=== PATIENT | female | born 1950 | race Caucasian/White ===

== ENCOUNTER 2024-04-29 21:14 | Emergency (ER) | payer MEDICARE, OTHER, SELFPAY ==
[2024-04-29 22:05] VITALS: BP 154/90; PULSE 88; RESP 16; TEMP 36.4; O2SAT 98; BMI 22.6
--- NOTE | 2024-04-29 22:50 | ED.ANIMALBIT ---
HPI - Animal Bite General Time Seen by Provider: 22:50 Date Seen: 04/29/24 Chief Complaint: Animal Bite Stated Complaint: cat bite R wrist Time Seen by Provider: 04/29/24 22:50 Source: patient, RN notes reviewed and old records reviewed Mode of arrival: ambulatory Limitations: no limitations History of Present Illness HPI narrative: Isabel is a very pleasant 73-year-old female with up-to-date tetanus in 2022 who comes to the emergency room for evaluation after a cat bite. Isabel was caring for a neighbor's cat and it bit and scratched her on the backside of her right wrist. Unfortunately this was at 1400 hours and now she has increasing redness and soreness around this area. She has not had any fever chills or vomiting. She feels that the cat is up-to-date on vaccinations but has not specifically spoken to her friend. Related Data Allergies Allergy/AdvReac Type Severity Reaction Status Date / Time nitrofurantoin (From Allergy Severe Anaphylaxis Verified 04/29/24 22:43 Macrobid) clarithromycin (From Biaxin) AdvReac Severe Anaphylaxis Verified 04/29/24 22:43 sulfamethoxazole (From AdvReac Severe Anaphylaxis Verified 04/29/24 22:43 Bactrim) trimethoprim (From Bactrim) AdvReac Severe Anaphylaxis Verified 04/29/24 22:43 venlafaxine (From Effexor) AdvReac Severe Agitated Verified 04/29/24 22:43 Review of Systems Status of ROS: Reports: 6 or more systems reviewed and unremarkable except as noted in History and below Exam Narrative: Exam Narrative: Isabel is alert and oriented. No acute distress. Heart with regular rate and rhythm and lungs are clear to auscultation. Examination of the right wrist shows. Very small superficial scabs and evidence of a bite wound on the dorsum of the right wrist. There is surrounding erythema-I do not note significant edema. Distally hand does appear to be red. Ventral surface is without erythema. No evidence of lymphadenopathy. Const: Vital Signs, click to edit/add: Vital Signs - 24 hr 04/29/24 22:05 Temperature 97.6 F Pulse Rate [Right Pulse Oximeter] 88 Respiratory Rate 16 Blood Pressure [Ri ght Upper Arm] 154/90 H Pulse Oximetry 98 Oxygen Delivery Me thod Room Air Documenting provider has reviewed patient's vital signs: yes Course Course ED Course: At this time 1 of the wounds is big enough that I would x-ray to ensure there was no remnant of retained foreign body such as a tooth. If this is negative patient will be discharged home with plan of antibiotic and pain control. Vital Signs Vital signs: Initial Vital Signs Temperature 97.6 F 04/29/24 22:05 Temperature Source Temporal Artery Scan 04/29/24 22:05 Pulse Rate 88 04/29/24 22:05 Pulse Rhythm Regular 04/29/24 22:05 Pulse Strength 3+ Normal 04/29/24 22:05 Respiratory Rate 16 04/29/24 22:05 Blood Pressure 154/90 H 04/29/24 22:05 Blood Pressure Mean 111 H 04/29/24 22:05 Blood Pressure Position Sitting 04/29/24 22:05 Pulse Oximetry 98 04/29/24 22:05 Oxygen Delivery Method Room Air 04/29/24 22:05 Vital Signs Temperature 97.6 F 04/29/24 22:05 Pulse Rate 88 04/29/24 22:05 Respiratory Rate 16 04/29/24 22:05 Blood Pressure 154/90 H 04/29/24 22:05 Pulse Oximetry 98 04/29/24 22:05 Oxygen Delivery Method Room Air 04/29/24 22:05 Temperature 97.6 F 04/29/24 22:05 Pulse Rate 88 04/29/24 22:05 Respiratory Rate 16 04/29/24 22:05 Blood Pressure 154/90 H 04/29/24 22:05 Pulse Oximetry 98 04/29/24 22:05 Oxygen Delivery Method Room Air 04/29/24 22:05 MDM - Animal Bite MDM Narrative Medical decision making narrative: 1. Cat bite-suspect cellulitis. No evidence of abscess at this early stage. No evidence of sepsis with reassuring vital signs and no fever. Will place patient on Augmentin 875 p.o. b.i.d. for 7 days. Recommend monitoring and seeking medical attention for worsening symptoms such as vomiting, fever, extending erythema onto the forearm. Patient will check with her friend tomorrow to ensure that this pet is up-to-date on vaccinations including rabies. No concerns regarding tetanus with patient having been updated in 2022. For discomfort recommend ibuprofen 400 mg every 8 hours. Will give her a small amount of Vicodin 5/325 1-2 tabs p.o. q.4-6 hours p.r.n. 8. With no refills to be used in the event that ibuprofen is not managing her discomfort. Both of these given through our MeetMe machine. 2. Disposition-home at this time. Seek medical attention for worsening symptoms. If she has worsening symptoms may need to admit for IV Unasyn. Medical Records Attestation: I reviewed the patient's medical records. Imaging Data Right wrist: Attestation: I have reviewed the pertinent imaging results. My impression: I do not note any foreign body Radiologist's impression: No acute fractures or malalignment. Mild 1st MCP joint degenerative changes. No retained radiopaque foreign body. Mild soft tissue swelling. Discharge Plan Discharge Clinical Impression: Cat bite Patient Disposition: Home, Self-Care Condition: Unchanged Instructions: Animal Bite (ED) Additional Instructions: Please check to ensure the cat is up-to-date on vaccinations. Start Augmentin tonight. Please monitor your wound. It will not look immediately better but should not be worsening. If you start to develop fever chills vomiting or the redness extends onto the forearm you will need to return for IV antibiotics. For pain, recommend ibuprofen 400 mg every 8 hours. Will also give you a few doses of Vicodin which is a combination medication of a narcotic called hydrocodone and Tylenol. Please do not take any extra Tylenol. This medication sometimes does cause nausea and almost always causes constipation so you may want to be on a stool softener. Activity Level: No Restrictions Discharge Diet: Regular Follow Up/Referrals: Carol Otero DO [Primary Care Provider] - Stand Alone Forms: Carma Info Instructions
== END 2024-04-29 23:33 | disposition home or self-care (01) ==
LOC: ED 23:04
PROVIDERS: Emergency Provider Family Medicine; PCP Family Medicine
DX: S61.531A Puncture wound without foreign body of right wrist, initial encounter (principal); W55.01XA Bitten by cat, initial encounter
CPT/HCPCS: 73100; 99283; 99284

== ENCOUNTER 2024-05-07 22:18 | Emergency (ER) | payer MEDICARE, OTHER, SELFPAY ==
--- OUTSIDE RECORDS SUMMARY | 2024-05-07 22:20 | XMS_ITS | Encounter Summary ---
Author Organization [facility] Address [address], [place] [address] Care Team Providers Care Pre Owned Sales Manager Name Role Phone Lynsey Smith MD Primary Care Provider [phone] Encounter Details Date Type Department Care Team (Late st Contact Info) Description 11/02/2016 Consent for Procedure/Treatme nt [facility] INFORMED CONSENT RECORD Social History Tobacco Use Types Packs/Day Years Used Date Smoking Tobacco: Never Assessed Sex and Gender Information Value Date Recorded Sex Assigned at Not on file Gender Identity Not on file Sexual Orientation Not on file documented as of this encounter Plan of Treatment Not on file documented as of this encounter Visit Diagnoses Not on filedocumented in this encounter Care Teams Pre Owned Sales Manager Relationship Specialty Start Date End Date Lynsey Smith MD [address] [place] [address] PCP - General Family Practice 11/02/16 documented as of this encounter
--- OUTSIDE RECORDS SUMMARY | 2024-05-07 22:21 | XMS_ITS | Clinical Summary ---
Author Organization [facility] Address [place], [place] [address] Care Team Providers Care Dock Manager Name Role Phone Carol Otero DO Primary Care Provider Allergies Active Allergy Reactions Criticality Noted Date Comments Sulfamethoxazole-Trimethoprim Rash 2006 Clarithromycin Rash 03/20/2007 Venlafaxine Analogues Rash 03/10/2017 Nitrofurantoin Medications MULTIVITAMIN TABIndications: Internal hemorrhoids without mention of complication,Sp ecial screening for malignant neoplasms, colon,Family history of colonic polyps take 1 tablet by oral route once daily with food 0 03/20/20 07 Active calcium-vits F2-A-J8-mineral s 166.75 mg- 166.75 unit cap Take by mouth. 0 05/23/19 15 Active folic acid 800 mcg tablet Take 1 tablet by mouth once daily. 0 06/08/19 18 Active ibuprofen (ADVIL; MOTRIN) 400 mg tablet Take 400 mg by mouth every 6 hours if needed. Active blood-glucose meterIndication s:Type 2 diabetes mellitus without complication, without long-term current use of insulin (HC) Dispense meter, test strips, lancets covered by pt ins. E11.9 NIDDM type II - Test 1 time/day 1 Each 05/04/19 22 Active spironolactone (ALDACTONE) 50 mg tablet Take 50 mg by mouth two times daily. 04/15/19 23 Active blood sugar diagnostic (Accu-Chek Guide test strips) stripIndication s:Type 2 diabetes mellitus without complication, without long-term current use of insulin (HC) Dispense item covered by pt ins. E11.9 NIDDM type II - Test 1 time/day 100 Each 3 04/29/19 23 Active medication order composer Viviscal PRO advanced hair health (A[place]oMar 475mg, apple extract powder 40mg, biotin 100mcg) 0 04/29/19 23 Active lancets (Accu-Chek Softclix Lancets)Indicat ions:Type 2 diabetes mellitus without complication, without long-term current use of insulin (HC) use to test blood glucose levels once daily. 100 Each 09/02/19 23 Active cholecalciferol , Vitamin D3, (Vitamin D-3) 5,000 unit tab tablet Take 1,000 units by mouth once daily. Three times daily 0 10/27/19 23 Active CPAPIndications :LAKESHA (obstructive sleep apnea) CPAP machine for home use at pressure 8.6 cmw, nasal mask x1/3month with nasal cushion x2/mo 1 Each 11 05/17/19 24 Active clobetasol 0.05% TOPICAL (TEMOVATE) 0.05 % external solution Apply to affected areas on scalp 1-2x daily for up to two weeks at a time.* 04/27/19 24 Active sulfacetamide sodium-sulfur (SUMAXIN) 8-4 % suspension WASH AFFECTED AREAS ON CHEST ONCE DAILY. LATHER AND LET SIT A FEW MINUTES PRIOR TO RINSING. 05/18/19 24 Active triamcinolone 0.1 % ointment APPLY TO AFFECTED AREAS ON CHEST 1-2X DAILY FOR UP TO TWO WEEKS. TAKE A BREAK AND REPEAT NEEDED FOR FLARES. 05/18/19 24 Active medication order composer monoxodil Activ e metFORMIN (GLUCOPHAGE) 500 mg tabletIndicatio ns:Type 2 diabetes mellitus without complication, without long-term current use of insulin (HC) Take 1 Tablet (500 mg) by mouth two times daily with meals. 180 Tablet 2 12/06/19 24 Active rosuvastatin (CRESTOR) 10 mg tabletIndicatio ns:Mixed hyperlipidemia, Type 2 diabetes mellitus without complication, without long-term current use of insulin (HC) TAKE ONE TABLET BY MOUTH ONE TIME DAILY AT BEDTIME 90 Tablet 1 05/01/19 25 Active amoxicillin-cla vulanate (AUGMENTIN) 875-125 mg tablet Take 1 Tablet by mouth two times daily with meals. 04/29/19 25 Active rosuvastatin (CRESTOR) 10 mg tabletIndicatio ns:Mixed hyperlipidemia, Type 2 diabetes mellitus without complication, without long-term current use of insulin (HC) Take 1 Tablet (10 mg) by mouth at bedtime. 90 Tablet 2 07/13/19 24 025 Discontinued Active Problems Problem Noted Date Diagnosed Date Sensorineural hearing loss, bilateral 07/26/2023 ACP (advance care planning) 11/16/2020 Overview (11/24/2020): Patient has registered for the ACP class on November. Anna Downing BIOFUELS ENGINEERING MANAGER Advance Care Planning Educator Greater trochanteric bursitis of both hips 07/09 Nodule of finger 02/22/2013 Adenomatous colon polyp 03/05/2012 Overview (09/01/2022): Colonoscopy 02/2012 polyp repeat in 5 years Colonoscopy 06/2017 normal repeat in 5 years Colonoscopy 08/2022 2-TA, repeat in 7 years, propofol LAKESHA 02/10/2012 AHI-20 02/17/2012 Retinal edema 03/08/2010 Symptomatic menopausal or female climacteric sta félix 02/19/2007 Other and unspecified hyperlipidemia 02/19/2007 Resolved Problems Problem Noted Date Diagnosed Date Resolved Date Routine general medical exam ination at a health care facility 02/27/2008 02/12/2016 Overview (11/07/2014): Dexa normal. 2004., minimal change in 2009, consider recheck age 69. Colonoscopy adenoma, repeat in 5 years. \Angelica Paredes M.D. 03/23/2012 1:38 PM Encounters Date Type Department Care Team Description 05/07/2024 Nurse Triage [facility] [address] [place] [address] Carol Otero, DO Diarrhea 05/01/2024 10:00 AM SUPERVISOR DRY PASTE Office Visit [facility] [address] [place] [address] Laurie Pike, DO ER Follow up (Cat bite on right wrist, getting better, on antibiotics) 05/01/2024 Nurse Triage [facility] [address] [place] [address] Carol Otero, DO Medication Problem 05/01/2024 Travel 04/30/2024 Nurse Triage [facility] [address] [place] [address] Carol Otero, Bite 04/30/2024 Refill [facility] [address] [place] [address] Carol Otero DO Refill Request (Rosuvastatin) 04/29/2024 Orders Only [facility] Scanner 1 scan: (1-Ord) [place], WRIST RT 2VW, 04/29/2024 04/29/2024 Nurse Triage [facility] [address] [place] [address] Carol Otero, DO Cat Bite 03/06/2024 10:30 AM SUPERVISOR [employer]Y PASTE Office Visit [facility] [address] [place] [address] Maria Alejandra Katz MD Consult (Hemorrhoids referred by Dr. Duran) 03/06/2024 Travel 02/15/2024 Telephone [facility] [address] [place] [address] Bernabe Duran MD Blood In Stool 02/15/2024 Travel from Last 3 Months Immunizations Name Administration Dates Next Due AMB INFLUENZA IIV3 (AGE 65+ YRS) PF (Flu Clinic Only) 01/12/2018,01/09/2017 COVID-19 vaccine (Moderna 100mcg/0.5mL) PF, MDV 07/14/2020,06/16/2020 Influenza Virus, Unspecified 01/01/2015 Influenza, High-dose Inactivated 01/24/2024,02/02 Influenza, High-dose Quadriv alent Inactivated 04/14/2023,02/14/2022 Influenza, IIV3 (Age 6-35 mos) 03/11/2011 Influenza, IIV3 (Age >=3 years) 02/16/20 13,03/11/2011,03/08/2010,2006 Influenza, Inactivated AIIV4 (Age 65+ Years) Preserv Free 03/10/2021,02/10/2020,02/07/2020 Influenza, Inactivated IIV3 (Age 65+ Years) Preserv Free 01/16/2019,01/09/2017 Pneumococcal Poly,23-Valent (Pneumovax) 09/12/2016 Pneumococcal conj 13-Valent (Prevnar 13) 11/07/2014 Td (Age >=7 Years) 12/08/2004 Tdap 05/06/2022,03/11/2011 Zoster (Shingrix-RZV, recombinant) 08/26/2022, Zoster (Zostavax-ZVL, live) 03/11/2011 Family History Medical History Relation Name Comments Other Brother sleep apnea Other Father of muscle diesase age 62 Diabetes Mother htn, , osteopor osis Other Sister sleep apnea Cancer-breast No Family History Cancer-colon No Family History Relation Name Status Comments Brother Father (Age 62) charo gehrig s disease Mother Alive Sister Social History Tobacco Use Types Packs/Day Years Used Date Smoking Tobacco: Never Smokeless Tobacco: Never Tobacco Cessation:Counseling Given: Yes Alcohol Use Standard Drinks/Week Comments Not Currently 0 (1 standard drink = 0.6 oz pur e alcohol) once a month or less, 1 beer PHQ-2 Answer Date Recorded PHQ-2 TOTAL SCORE 2 05/24/2023 Social Connections Answer Date Recorded Do you often feel lonely or isolated from those around you? 0 05/24/2023 Financial Resource Strain Answer Date R ecorded Difficulty of Paying Living Expenses 3 05/24/2023 Difficulty of Paying Living Expenses Not on file 05/24/2023 Food Insecurity Answer Date Recorded Do you worry your food will run out before you are able to buy more? 1 05/24/2023 Transportation Needs Answer Date Record ed Does lack of transportation keep you from medica l appointments? 1 05/24/2023 Does lack of transportation keep you from work, meetings or getting things that you need? 1 05/24/2023 Housing Stability Answer Date Recorded What is your housing situation today? 1 05/24/2023 Utilities Answer Date Recorded Do you have trouble paying f or utilities (for example, heat, electricity, water, phone)? 1 05/24/2023 Comments No Sex and Gender Information Value Date Recorded Sex Assigned at Not on file Legal Sex Female 6:13 AM SUPERVISOR [employer] PA[employer] Gender Identity Not on file Sexual Orientation Not on file Occupation Industry Job Start Date Job End Date works at [employer] Not on file Not on file N ot on file Obstetrics History Para Term AB IAB SAB Ectopic Multiple Livin g Live Births 3 3 3 Date Outcome GA Total Labor Labor/2nd/3rd Weight Sex Type Anes PTL [place] A1 A5 Name Clin Term Term Term Last Filed Vital Signs Vital Sign Reading Time Taken Comments Blood Pressure 124/77 05/01/2024 10:09 AM SUPERVISOR [employer]Y PASTE Pulse 76 05/01/2024 10:09 AM SUPERVISOR [employer] PASTE Temperature 36.7 C (98.1 F) 12/11/2023 2:10 PM CDT Respiratory Rate 14 08/25/2022 9:57 AM CDT Oxygen Saturation 99% 03/06/2024 10:38 AM SUPERVISOR [employer] PASTE Inhaled Oxygen Concentration - - Weight 63.5 kg (140 lb) 03/06/2024 10:38 AM SUPERVISOR [employer]Y PASTE with shoes Height 168 cm (5' 6.14) 05/24/2023 2:31 PM SUPERVISOR [employer] PASTE Body Mass Index 22.5 05/24/2023 2:31 PM [employer]PERVISOR [employer]STE Plan of Treatment Upcoming Encounters Date Type Department Care Team (Late st Contact Info) Description 05/27/2024 11:05 AM SUPERVISOR [employer] PASTE Office Visit [facility] [address] [place] [address] Carol Otero DO [address] [place] [address] Health Maintenance Due Date Last Done Comments Mammogram for age 45-75 05/22/2024 05/22/19, 04/18/2022, 03/05/2021, Additional history exists BMI (ht and wt on same day) for age 18+ 05/24/2024 05/24/2023, 05/17/2023, 04/29/2022, Additional history exists Depression screening for age 12+ 05/24/2024 05/24/2023, 04/29/2022, 05/11/2021, Additional history exists Medicare Wellness for age 65+ 05/24/2024, 04/29/2022, 02/07/2020, Additional history exists RSV vaccine for adults or (1 - 1-dose 75+ series) 2024 Lipids for age 45-75 05/24/2028 05/24/2023, 10/26/2022, 10/29/2021, Additional history exists Colonoscopy through age 75 08/25/202908/25, 08/25/2022, 06/06/2017, Additional history exists Tetanus booster 05/06/2032 05/06/2022, 12/2010, 12/08/2004 Pneumococcal series for age 50+ Completed 7, 11/07/2014 Hepatitis C screening for ag e 18-79 Completed 09/19/2016 DEXA/DXA scan for age 65+ Completed 2020, 07/24/2015, 04/23/2009 Tdap Completed 05/06/2022, 03/11/2011 Zoster (shingles) series for age 50+ Completed 08/26/2022, 05/06/2022, 03/11/2011 COVID-19 vaccine series Completed 01/24/20 24, 03/31/2023, 02/14/2022, Additional history exists Influenza for age 65+ Completed 01/24/2024 , 04/14/2023, 02/14/2022, Additional history exists Procedures Procedure Name Priority Date/Time Associated Diagnosis Comments SCAN-RADIOLOGY REPORT 04/29/2024 12:00 AM SUPERVISOR [employer] PASTE LIPID PANEL W REFLEX MEASURED LDL Routine 05/24/2023 2:19 PM SUPERVISOR [employer] Mixed hyperlipidemia XR MAMMO KAYLYN BILAT SCREEN Routine 05/22/2023 2:09 PM SUPERVISOR [employer] PA[employer] Visit for screening mammogram COLONOSCOPY 08/25/2022 8:30 AM CDT XR DXA BONE DENSITY 2 SITES AXIAL Routine 03/10/2021 1:26 PM SUPERVISOR [employer] PASTE Osteopenia of multiple sites ANTI HCV Routine 09/19/2016 9:00 AM CDT Encounter for hepatitis C screening test for low risk patient from Last 3 Months or Most Recently Relevant to Health Maintenance Results * SCAN-RADIOLOGY REPORT (04/29/2024 12:00 AM SUPERVISOR DRY PASTE) Anatomical Region Laterality Modality Other us Scanner OTHER Final Result * (ABNORMAL) LIPID PANEL W REFLEX MEASURED LDL (05/24/2023 2:19 PM SUPERVISOR [employer]Y PASTE) CHOLESTEROL,TOTAL 193 100 - 199 mg/dL 05/24/2023 9:36 PM SUPERVISOR DRY PASTE [facility] Comment: Cholesterol, Total Reference Ranges Desirable <200 mg/dL Borderline 200-239 mg/dL High >=240 mg/dL TRIGLYCERIDES 246(H) <150 mg/dL 05/24/2023 9:36 PM SUPERVISOR DRY PASTE [facility] HDL CHOLESTEROL 55 >40 mg/dL 9:36 PM SUPERVISOR DRY PASTE [facility] NON-HDL CHOLESTEROL 138 <145 mg/dl 05/24/2023 9:36 PM SUPERVISOR DRY PASTE [facility] CHOL/HDL RATIO 3.51 <4.50 05/24/2023 9:36 PM SUPERVISOR DRY PASTE [facility] LDL CHOLESTEROL 89 <=130 mg/dL 05/24/2023 9:36 PM SUPERVISOR DRY PASTE [facility] VLDL CHOLESTEROL 49(H) <=30 mg/dL 05/24/2023 9:36 PM SUPERVISOR DRY PASTE [facility] PROVIDER ORDERED STATUS RANDOM 05/24/2023 9:36 PM SUPERVISOR DRY PASTE [facility] Blood BLOOD SPECIMEN / Unknown Venipuncture / Unknown 05/24/2023 2:19 PM SUPERVISOR DRY PASTE 05/24/2023 2:22 PM SUPERVISOR [employer] PASTE us Carol Otero DO CHEMISTRY Final Resul t [facility] [address] [place] [address], [place] * XR MAMMO KAYLYN BILAT SCREEN (05/22/2023 2:09 PM SUPERVISOR DRY PASTE) Anatomical Region Laterality Modality BREASTS, Breast Left, Breast Right Bilateral Mammography Impressions 05/24/2023 7:02 AM SUPERVISOR DRY PASTE There is no radiographic evidence for malignancy. Recommend annual mammograms. MAMMOGRAM ASSESSMENT: ACR 1 Negative PATIENTS: You will also receive a letter with your examination results in an easy to read format. If you have questions about your results, please contact your referring provider. Narrative 05/24/2023 7:02 AM SUPERVISOR DRY PASTE For Patients: As a result of the Century Cures Act, medical imaging exams and procedure reports are released immediately into your electronic medical record. You may view this report before your referring provider. If you have questions, please contact your health care provider. XR MAMMO KAYLYN BILAT SCREEN [[id number]] CLINICAL HISTORY: This is an asymptomatic 72 y.o. patient. INDICATION FOR EXAM: Mammogram Screening. TECHNIQUE: CC & MLO views were obtained. This study was evaluated with the assistance of Computer-Aided Detection. Breast Tomosynthesis was used in interpretation. COMPARISON FILM: Yes 04/18/22 [facility] 03/05/21 [facility] FINDINGS: The breasts are heterogeneously dense, which may obscure small masses. There are no dominant masses, suspicious micro calcifications or areas of architectural distortion. us Carol Allredt DO MAMMO Final Resul t * COLONOSCOPY (08/25/2022 8:30 AM CDT) 08/25/2022 8:30 AM CDT Narrative Transcriptions Bernabe Duran MD - 08/25/2022 10:11 AM CDT Patient Name: Isabel Escalera Procedure Date: 08/25/2022 Gender: Female Date of : 1950 Admit Type: Outpatient Procedure: Colonoscopy Proceduralist: Bernabe Duran MD , Radha Lenz RN(Nurse), Cara Aburto (Nurse) Indications/Pre-Op Diagnosis: High risk colon cancer surveillance:Personal history of adenoma less than 10 mm in size, Last colonoscopy: June 2017 Medications: Fentanyl 150 micrograms IV, Midazolam 4 mgIV, The level of sedation administered wasmoderate Procedure Description: The patient had risks, benefits and alternatives explained to andgave informed consent. The patient had a stable cardiopulmonary status and judged an adequate candidate for conscious sedation. The PCF-H190L [id number] was passed through the anus and advanced to the cecum, identified by appendiceal orifice and ileocecal valve. The colonoscopy was performed without difficulty. The patient toleratedthe procedure well. The quality of the bowel preparation was good. The ileocecal valve, appendiceal orifice, and rectum were photographed. Complications: No immediate complications. Estimated Blood Loss & Specimen: Estimated blood loss: none. Specimen collected - Yes and sent to Laboratory Findings: Two sessile polyps were found in the proximal ascending colon. The polyps were 3 to 4 mm in size. These polyps were removed with a cold snare. Resection and retrieval were complete. The colon (entire examined portion) was moderately redundant. Internal hemorrhoids were found. The hemorrhoids were moderate. Erythema, small erosion on one hemorrhoid. The exam was otherwise without abnormality on direct and retroflexion views. Impressions/Post-Op Diagnosis: - Two 3 to 4 mm polyps in the proximal ascending colon, removed witha cold snare. Resected and retrieved. - Redundant colon. - Internal hemorrhoids. - The examination was otherwise normal on direct and retroflexionviews. Recommendation: - Patient has a contact number available for emergencies. The signsand symptoms of potential delayed complications were discussed with the patient. Return to normal activities tomorrow. Written discharge instructions were provided to the patient. - Resume previous diet. - Continue present medications. - Await pathology results. - Repeat colonoscopy is recommended. The colonoscopy date will be determined after pathology results from today's exam become available for review. - Patient's sedation for a repeat study will require Anesthesia staff assistance. Moderate Sedation: A time out was performed before the procedure. Moderate (conscious) sedation was administered by the endoscopy nurse and supervised bythe endoscopist. The following parameters were monitored: oxygensaturation, heart rate, blood pressure, EKG, CO2, respiratory rate, adequacy of pulmonary ventilation and reponse to care. Please refer to the patient's medical record flowsheets and nursing notes for moderate sedation details. Total physician intraservice time was 20 minutes. Bernabe Duran MD 08/25/2022 9:41:16 AM This report has been signed electronically. Note Initiated On: 08/25/2022 8:30 AM Procedure Code(s): --- Professional --- 20864, Colonoscopy, flexible; with removalof tumor(s), polyp(s), or other lesion(s) bysnare technique Diagnosis Code(s): --- Professional --- Z86.010, Personal history of colonicpolyps D12.2, Benign neoplasm of ascending colon K64.8, Other hemorrhoids Q43.8, Other specified congenitalmalformations of intestine CPT copyright 2021 [employer]. All rights reserved. The codes documented in this report are preliminary and upon bone worker reviewmay be revised to meet current compliance requirements. Scope In: 9:11:22 AM Scope Withdrawal Time 0 hours 9 minutes 33 seconds Scope Out: 9:33:41 AM us Bernabe Duran MD PROCEDURE ORD Edited Re sult - Final * (ABNORMAL) XR DXA BONE DENSITY 2 SITES AXIAL (03/10/2021 1:26 PM SUPERVISOR [employer] PASTE) Anatomical Region Laterality Modality Spine, HIPS, HIPL, HIPR Other Impressions 03/16/2021 7:55 AM SUPERVISOR [employer]Y PASTE Osteopenia. RECOMMENDATIONS: The National Osteoporosis Foundation recommends pharmacologic treatment for patients with T-scores of -2.5 or less, patients with prior history of fragility fractures, or patients with 10-year probability of greater than 3% at hips or greater than 20% of suffering major osteoporotic fractures. Recommend continued optimization of calcium and vitamin D intake through dietary means and/or supplementation and regular exercise. Repeat scan recommended in 3-5 years. Brandi Mcintyre PA-C [facility] 03/16/2021 Narrative 03/16/2021 7:55 AM SUPERVISOR DRY PASTE For Patients: Results are automatically released to your [facility] [employer] account once available, in compliance with federal regulations. This means that you may see your results before your provider has had a chance to review them. Please allow 2-3 business days for your provider to comment on the results. XR DXA Bone Mineral Density (BMD) EXAM LOCATION: [facility] [address] [facility] [address] PATIENT NAME: Isabel Escalera DATE OF : 1950 EXAM DATE: 03/10/2021 REQUESTING PROVIDER: Carol Otero DO GENDER AT : female HEIGHT: 5' 6.5 (03/10/2021) WEIGHT: 151 lb (03/10/2021) MENOPAUSAL STATUS: Postmenopausal RACE/ETHNICITY: White RISK FACTORS: Family History of Osteoporosis, History of Fragility Fracture (at a major site) and White Race CURRENT MEDICATION FOR BONE LOSS: NONE INDICATION: Follow-up of existing osteopenia COMPARISON DATE(S): 2015 DXA scans are compared to prior studies for a patient only when the two (or more) studies were performed on the same scanner. It is not possible to compare data generated on one scanner to data from another because there are not standards in DXA equipment. This applies even if the two scanners are made by the same aircraft engine specialist. PROCEDURE: Dual-energy x-ray absorptiometry performed with routine technique. Reporting is completed in the form of a T-score. The T-score represents the standard deviation from peak bone mass based on young healthy adult. A Z-score is used for diagnosis in premenopausal women, and for men under the age of 50. FINDINGS: RESULT LUMBAR SPINE L1 - L4 BMD: 0.981 g/cm2 T-Score: - 1.7 Z-Score: - 0.1 Change from prior in 2016: Decrease 7.5%. RESULTS FEMUR Left femoral neck BMD: 0.814 g/cm2 T-Score: - 1.6 Z-Score: + 0.1 Change from prior in 2016: Decrease 5.7%. Right femoral neck BMD: 0.844 g/cm2 T-Score: - 1.4 Z-Score: + 0.3 Change from prior in 2016: Decrease 6.3%. Left hip BMD: 0.895 g/cm2 T-Score: - 0.9 Z-Score: + 0.6 Change from prior in 2016: Decrease 2.2%. Right hip BMD: 0.934 g/cm2 T-Score: - 0.6 Z-Score: + 0.9 Change from prior in 2016: Decrease 0.1%. WHO criteria: Normal: T-score at or above -1 SD Osteopenia: T-score between -1.1 and -2.4 SD Osteoporosis: T-score at or below -2.5 SD FRAX RISK CALCULATION (USED FOR OSTEOPENIA ONLY): 10-year probability of major osteoporotic fracture: 16.5%. 10-year probability of hip fracture: 2.7%. us Carol Otero DO DEXA Final Resul t * ANTI HCV (09/19/2016 9:00 AM CDT) HEPATITIS C ANTIBODY Non-Reacti ve Non-Reacti ve 09/19/2016 5:55 PM CDT [facility] Blood BLOOD SPECIMEN / Unknown Venipuncture / Unknown 09/19/2016 9:00 AM CDT 09/19/2016 9:00 AM CDT Narrative [facility] - 09/19/2016 5:55 PM CDT Antibodies to HCV not detected; does not exclude the possibility of exposure to HCV. us Lynsey Smith MD SEND OUTS Pavithra l Result [facility] [address] [place] [address], [place] from Last 3 Months or Most Recently Relevant to Health Maintenance Insurance Curbside MR PB ONLY [employer] PB ONLY Member Subscriber Plan / Payer (Ef fective 2019-Present) Name:Isabel Escalera Relation to Subscriber:Self Name:Isabel Escalera Payer ID:[id number] (NAIC) Type:Not on file Address: [place] [id number] Care Teams Dock Manager Relationship Specialty Start Date End Date Carol Otero [place] [address] PCP - General Family Practice 01/24/17
--- OUTSIDE RECORDS SUMMARY | 2024-05-07 22:21 | XMS_ITS | Data Portability ---
Author Organization [place] [facility] [place] Address [address] [place] [phone] Care Team Providers Care Director Of Women'S Services Name Role Phone [facility] Referring Provider Assessment No assessment recorded. Plan of Treatment Reminders Order Date Submit Date Provider Last Modified By Organization Details Last Modified Time Details Appointments Recheck per Daija land 50 mi-RVT 2024 10:00A [facility] Not available Not available Not available Recheck per Daija CARR 2024 10:30A [facility] Not available Not available Not available Lab None recorde d. Referral None recorde d. Procedures None recorde d. Surgeries None recorde d. Imaging None recorde d. Medication Orders None recorde d. Patient TargetsNo targets recorded. Patient Instructions Encounter Date Encounter Id Patient Instructions Last Modified By Organization Details Last Modified Time 02/07/2024 [id number] Due to persisten t symptoms I recommend Varithena ablation of the left TESSV and UGFS to bilateral tributary veins. Not available 02/07/2024 14:57:38 Reason for Referral None Reported. Problems Name Problem SNOMED Code Status Onset Date Resolution Date Notes Provider Name and Address Organization Details Recorded Time Type 2 diabetes mellitus 46856517 Active 2023 Torres Arriola PA-C [address] [place], [address], [place] [facility] 4 15:48:54 Hypercholestero lemia 57672175 Active 2023 Torres Arriola PA-C [address] [place], [address], [place] [facility] 15:49:01 Problem Notes None recorded. Procedures Surgical History Date Name Laterality Status Provider Name and Address Organization Details Recorded Time 02/08/20 PVC - Ultrasound Guided Sclerotherapy completed Cheri Collins [place] [facility] 02/08/2024 12:45:12 02/07/20 PVC - Varithena: Single Vein w/ UGFS completed Anna Baxter MD [address], [place], [address], [place] [facility] 02/07/2024 15:00:03 01/25/20 PVC - Ultrasound Guided Sclerotherapy completed Cheri Collins [place] [facility] 01/25/2024 12:23:46 01/24/20 PVC - Ultrasound Guided Sclerotherapy completed Cheri Collins [place] [facility] 01/24/2024 13:30:37 01/02/20 PVC - Varithena: Multiple Veins w/ UGFS completed Cheri Collins [place] [facility] 01/02/2024 12:21:34 01/01/20 PVC - Varithena: Single Vein w/ UGFS completed Cheri Collins [place] [facility] 01/01/2024 12:38:58 12/28/19 PVC - EVRFA: Two Veins completed Cheri Collins [place] [facility] 12/28/2023 12:36:54 12/27/19 PVC - EVRFA: Single Vein completed Cheri Collins [place] [facility] 12/27/2023 12:55:33 Colonoscopy completed Anna Baxter MD [address], [place], [address], [place] [facility] 02/07/2024 13:16:32 Hysterectomy completed Anna Baxter MD [address], [place], [address], [place] [facility] 02/07/2024 13:16:32 Orthopedic Surgery completed Clarissa Baxter MD [address], [place], [address], [place] [facility] 02/07/2024 13:16:32 Vein procedure completed Anna Baxter MD [address], [place], [address], [place] [facility] 02/07/2024 13:16:32 Cataract surgery completed Jenae Baxter MD [address], [place], [address], [facility] 02/07/2024 13:16:32 vitrectomy completed KEREN YanesC [address], [place], [address], [facility] 05/25/2023 15:49:47 reconstruction of left ankle completed Torres Arriola PA-C [address], [place], [address], [facility] 05/25/2023 15:49:54 Imaging Results None recorded. Procedure Notes None recorded. Medical Equipment None Reported. Allergies Allergen ID Allergen Name Allergen Category Reaction Reaction Severity Criticality Documentation Date Start Date Code Code System Note Provider Name and Address Organization Details Recorded Time 4883 Bactrim medicatio n Not available Not available Not available 07/13/2023 65880 9 RxNorm Torres Arriola PA-C [address], [place], [address], [facility] 4 14:07:31 4884 Biaxin medicatio n Not available Not available Not available 07/13/2023 69496 9 RxNorm Torres Arriola PA-C [address], [place], [address], [facility] 4 14:07:38 4885 Effexor medicatio n Not available Not available Not available 07/13/2023 94793 2 RxNorm JASON Yanes-C [address], [place], [address], [facility] - [facility] 4 14:07:44 4886 Macrobid medicatio n Not available Not available Not available 07/13/2023 94912 1 RxNorm Torres Arriola PA-C [address], [place], [address], [place] [facility] 4 14:07:50 Medications Name Sig Start Date Stop Date Status Note LastModified by Organization Details LastModified Time metformin 500 mg tablet TAKE ONE TABLET BY MOUTH TWICE A DAY WITH MEALS* active Not Available Not Available No t Available etodolac 300 mg capsule 01/22 completed Not Available Not Available Not Available azithromyci n 250 mg tablet 01/22 completed Not Available Not Available Not Available Accu-Chek Softclix Lancets use to test blood glucose levels once daily.* active Not Available Not Available No t Available triamcinolo ne acetonide 0.1 % topical ointment APPLY TO AFFECTED AREAS ON CHEST 1-2X DAILY FOR UP TO TWO WEEKS. TAKE A BREAK AND REPEAT NEEDED FOR FLARES. active Not Available Not Available No t Available mupirocin 2 % topical ointment Apply topically to affected area(s) three times daily for 5 days.* 01/22 completed Not Available Not Available Not Available methylpredn isolone 4 mg tablets in a dose pack 01/22 completed Not Available Not Available Not Available clobetasol 0.05 % scalp solution APPLY A SMALL AMOUNT TO AFFECTED AREAS ON SCALP 1-2 TIMES DAILY ONLY ON MONDAYS AND FRIDAYS, ONGOING. active Not Available Not Available No t Available naproxen 500 mg tablet TAKE ONE TABLET BY MOUTH TWICE A DAY WITH MEALS* 01/22 completed Not Available Not Available Not Available spironolact one 50 mg tablet TAKE TWO TABLETS BY MOUTH DAILY WITH A FULL GLASS OF WATER* active Not Available Not Available No t Available rosuvastati n 10 mg tablet TAKE ONE TABLET BY MOUTH ONE TIME DAILY AT BEDTIME* active Not Available Not Available No t Available chlorhexidi ne gluconate 0.12 % mouthwash 01/22 completed Not Available Not Available Not Available Calcium 600 + D(3) 600 mg-125 unit tablet active Not Available Not Available Not Available GaviLyte-G 236 gram-22.74 gram-6.74 gram-5.86 gram oral solution Drink 2 liters the day before colonosco py and 2 liters 6 hours before colonosco py appointme nt* 05/25 completed Not Available Not Available Not Available sulfacetami de sodium-sulf ur 8 %-4 % topical suspension WASH AFFECTED AREAS ON CHEST ONCE DAILY. LATHER AND LET SIT A FEW MINUTES PRIOR TO RINSING. active Not Available Not Available No t Available Multi For Her 50 Plus active Not Available Not Available Not Available Accu-Chek Guide test strips Test 1 time daily* active Not Available Not Available No t Available Paxlovid 300 mg (150 mg x 2)-100 mg tablets in a dose pack Take 2 nirmatrel vir 150 mg pink-oval tablets and 1 ritonavir 100 mg white-ova l tablet together twice daily for 5 days.* 05/25 completed Not Available Not Available Not Available Vitals None Recorded Social History Question Answer Notes LastModified by Organizat ion Details LastModified Time Tobacco Smoking Status Never Smoker Torres Arriola PA-C [address], [place], [address], [place] [facility] 05/25/2023 15:49:18 What Is Your Level Of Alcohol Consumption? Occasional Information not available 02/07/2024 How Many Times Per Week Do You Consume Alcohol? Less Than 1 Time Per Week Information not available 02/07/2024 Are You Currently Employed? No Information not available 05/25/2023 How Many Times Per Week Do You Exercise? 5-7 Times Per Week Information not available 02/07/2024 How Many Children Do You Have? 3 Information not available 05/25/2023 What Is Your Relationship Status? Single Information not available 05/25/2023 Sex: Unknown Functional Status Question Answer Note LastModified by Organization D etails LastModified Time What is your exercise level? Moderate Information not available 02/07/2024 Mental Status None recorded. Family History Relationship Description Onset Age of this Age Resolved Age Notes LastModified by Organization Details LastModified Time Mother Varicose veins of lower extremity Not available 2023 15:49:10 Medical History Condition Response Varicose Veins Y Diabetes - Type II Y Gynecological History Statement/Question Response How many childrens do you have? 3 Number of Miscarriages 0 Number of Pregnancies 3 Are you or planning to become p regnant? N Are you ? N Obstetrics History GPAL:G 0 P 0 0 0 0 Past Encounters Encounter ID Performer Location Encounter Start Date Encounter Closed Date Diagnosis/Indication Diagnosis SNOMED-CT Code Diagnosis ICD10 Code Diagnosis Note [id number] MD Maria Guadalupe [facility] [place] [address] [place] [address] 05/25/2023 12:49:31 05/30/2023 16:18:34 Pain co-occurrent and due to varicose veins of bilateral legs [id number] I83.813 DUPLEX ULTRASOUND FINDINGS: Spectral doppler analysis shows abnormal reflux (>500msec) in the left GSV, right GSV, right ASV, right SSV, and multiple bilateral tributary veins. The deep veins are patent with normal compressib ility and augmentati on. There is adequate venous capacity of the deep system. There is no significan t tortuosity or aneurysm of the refluxing saphenous veins which would impede catheter advancemen t. ASSESSMENT :1)Left lower extremity superficia l chronic venous insufficie ncy of the GSV and tributary veins with pain and inflammati on affecting activities of daily living. CEAP 32)Right lower extremity superficia l chronic venous insufficie ncy of the GSV, ASV, SSV, and tributary veins with pain and inflammati on affecting activities of daily living. CEAP 33) Normal deep venous system without DVT4) The patient has progressio n of symptoms despite conservati ve measures including: avoiding long periods of sitting/st anding, regular daily exercise including moderate walking, weight control, and leg elevation. PLAN:1) Begin 6 week trial of conservati ve therapy with the addition of GCS 20-30mm Hg, OTC analgesics as needed. Rx provided today. If symptoms persist, proceed with the treatment plan..2) Thoroughly explained CVI with today's visit and patient had a lot of questions. Recommende d that patient read through educationa l materials and RTC in 6 weeks and we can go over treatment plan in more detail. Explained that treatment plan will include radiofrequ ency ablation and sclerother apy. Explained that treatment will take 2-3 months and results will not be instantane ous therefore she will still have bulging areas for the wedding she is attending in September. [id number] MD Ciarra Jaramillo [address] [place] [address] 07/13/2023 13:46:45 07/14/2023 10:18:28 Pain co-occurrent and due to varicose veins of bilateral legs [id number] I83.813 DUPLEX ULTRASOUND FINDINGS: Spectral doppler analysis shows abnormal reflux (>500msec) in the {{right le ft*}} {{great saphenous vein* smal l saphenous vein anter ior saphenous vein poste rior accessory saphenous vein great saphenous and small saphenous veins grea t saphenous and anterior saphenous veins grea t saphenous and posterior accessory saphenous veins grea t saphenous, small saphenous and anterior saphenous veins grea t saphenous, small saphenous and posterior accessory saphenous veins thig h extension of the small saphenous vein incom petent telephone recorder vein}}, {{right* l eft}} {{great saphenous vein small saphenous vein anter ior saphenous vein poste rior accessory saphenous vein great saphenous and small saphenous veins grea t saphenous and anterior saphenous veins* gre at saphenous and posterior accessory saphenous veins grea t saphenous, small saphenous and anterior saphenous veins grea t saphenous, small saphenous and posterior accessory saphenous veins thig h extension of the small saphenous vein incom petent telephone recorder vein}} and multiple {{right le ft bilater al*}} tributary veins. The deep veins are patent with normal compressib ility and augmentati on. Right deep venous insufficie ncy is {{absent* present in the common femoral vein prese nt in the femoral vein prese nt in the popliteal vein prese nt in the femoral and popliteal veins pres ent in the common femoral and femoral veins pres ent in the common femoral and popliteal veins pres ent in the common femoral, femoral and popliteal veins}}. Left deep venous insufficie ncy is {{absent* present in the common femoral vein prese nt in the femoral vein prese nt in the popliteal vein prese nt in the femoral and popliteal veins pres ent in the common femoral and femoral veins pres ent in the common femoral and popliteal veins pres ent in the common femoral, femoral and popliteal veins}}. There is adequate venous capacity of the deep system. There is no significan t tortuosity or aneurysm of the refluxing saphenous veins which would impede catheter advancemen t. [id number] MD Ciarra Jaramillo [address] [place] [address] 07/13/2023 13:46:45 07/14/2023 10:18:28 Pain co-occurrent and due to varicose veins of bilateral legs [id number] I83.813 DUPLEX ULTRASOUND FINDINGS: Spectral doppler analysis shows abnormal reflux (>500msec) in the {{right le ft*}} {{great saphenous vein* smal l saphenous vein anter ior saphenous vein poste rior accessory saphenous vein great saphenous and small saphenous veins grea t saphenous and anterior saphenous veins grea t saphenous and posterior accessory saphenous veins grea t saphenous, small saphenous and anterior saphenous veins grea t saphenous, small saphenous and posterior accessory saphenous veins thig h extension of the small saphenous vein incom petent telephone recorder vein}}, {{right* l eft}} {{great saphenous vein small saphenous vein anter ior saphenous vein poste rior accessory saphenous vein great saphenous and small saphenous veins grea t saphenous and anterior saphenous veins* gre at saphenous and posterior accessory saphenous veins grea t saphenous, small saphenous and anterior saphenous veins grea t saphenous, small saphenous and posterior accessory saphenous veins thig h extension of the small saphenous vein incom petent telephone recorder vein}} and multiple {{right le ft bilater al*}} tributary veins. The deep veins are patent with normal compressib ility and augmentati on. Right deep venous insufficie ncy is {{absent* present in the common femoral vein prese nt in the femoral vein prese nt in the popliteal vein prese nt in the femoral and popliteal veins pres ent in the common femoral and femoral veins pres ent in the common femoral and popliteal veins pres ent in the common femoral, femoral and popliteal veins}}. Left deep venous insufficie ncy is {{absent* present in the common femoral vein prese nt in the femoral vein prese nt in the popliteal vein prese nt in the femoral and popliteal veins pres ent in the common femoral and femoral veins pres ent in the common femoral and popliteal veins pres ent in the common femoral, femoral and popliteal veins}}. There is adequate venous capacity of the deep system. There is no significan t tortuosity or aneurysm of the refluxing saphenous veins which would impede catheter advancemen t. ASSESSMENT : 1)Left lower extremity superficia l chronic venous insufficie ncy of the {{great saphenous vein* smal l saphenous vein anter ior saphenous vein poste rior accessory saphenous vein great saphenous and small saphenous veins grea t saphenous and anterior saphenous veins grea t saphenous and posterior accessory saphenous veins grea t saphenous, small saphenous and anterior saphenous veins grea t saphenous, small saphenous and posterior accessory saphenous veins thig h extension of the small saphenous vein incom petent telephone recorder vein}} and tributary veins with pain and inflammati on affecting activities of daily living. CEAP {{3* 4 5 6 2}} 2)Right lower extremity superficia l chronic venous insufficie ncy of the {{great saphenous vein small saphenous vein anter ior saphenous vein poste rior accessory saphenous vein great saphenous and small saphenous veins grea t saphenous and anterior saphenous veins* gre at saphenous and posterior accessory saphenous veins grea t saphenous, small saphenous and anterior saphenous veins grea t saphenous, small saphenous and posterior accessory saphenous veins thig h extension of the small saphenous vein incom petent telephone recorder vein}} and tributary veins with pain and inflammati on affecting activities of daily living. CEAP {{3* 4 5 6 2}} 3) Normal deep venous system without DVT 4) The patient has progressio n of symptoms despite conservati ve measures including: use of GCS class II or higher for more than {{6* 12}} weeks, avoiding long periods of sitting/st anding, regular daily exercise including moderate walking, weight control, OTC analgesics and leg elevation. PLAN: 1) Proceed with the treatment plan detailed below. [id number] MD Ciarra Jaramillo [address] [place] [address] 12/27/2023 11:53:56 12/28/2023 11:06:51 Pain co-occurrent and due to varicose veins of left leg [id number] I83.812 [id number] MD Ciarra Jaramillo [address] [place] [address] 12/28/2023 11:56:48 12/29/2023 04:20:12 Pain co-occurrent and due to varicose veins of right leg [id number] I83.811 [id number] MD Ciarra Jaramillo e [address] [place] [address] 01/01/2024 12:20:09 01/01/2024 14:55:24 Pain co-occurrent and due to varicose veins of left leg [id number] I83.812 [id number] MD Ciarra Jaramillo [address] [place] [address] 01/02/2024 12:07:55 01/02/2024 15:08:23 Pain co-occurrent and due to varicose veins of right leg [id number] I83.811 [id number] MD Ciarra Jaramillo e [address] [place] [address] 01/24/2024 12:08:58 01/27/2024 04:04:27 Pain co-occurrent and due to varicose veins of bilateral legs [id number] I83.813 FINDINGS: Spectral doppler analysis shows abnormal reflux (>500msec) in multiple {{right le ft bilater al*}} tributary veins. The {{right le ft bilater al*}} {{great saphenous vein* smal l saphenous vein anter ior saphenous vein poste rior accessory saphenous vein great saphenous and small saphenous veins grea t saphenous and anterior saphenous veins grea t saphenous and posterior accessory saphenous veins grea t saphenous, small saphenous and anterior saphenous veins grea t saphenous, small saphenous and posterior accessory saphenous veins thig h extension of the small saphenous vein incom petent telephone recorder vein}} and right ASV {{is are*} } {{absent c losed*}} consistent with previous treatment. Right deep venous insufficie ncy is {{absent p resent in the common femoral vein prese nt in the femoral vein prese nt in the popliteal vein prese nt in the femoral and popliteal veins pres ent in the common femoral and femoral veins* pre sent in the common femoral and popliteal veins pres ent in the common femoral, femoral and popliteal veins}}. Left deep venous insufficie ncy is {{absent* present in the common femoral vein prese nt in the femoral vein prese nt in the popliteal vein prese nt in the femoral and popliteal veins pres ent in the common femoral and femoral veins pres ent in the common femoral and popliteal veins pres ent in the common femoral, femoral and popliteal veins}}. The deep veins are patent with normal compressib ility and augmentati on. There is adequate venous capacity of the deep system. [id number] MD Ciarra Jaramillo [address] [place] [address] 01/24/2024 12:16:15 01/26/2024 09:25:45 Pain co-occurrent and due to varicose veins of left leg [id number] I83.812 [id number] MD Ciarra Jaramillo [address] [place] [address] 01/25/2024 12:04:51 01/26/2024 09:12:37 Pain co-occurrent and due to varicose veins of right leg [id number] I83.811 [id number] MD Ciarra Jaramillo [address] [place] [address] 02/07/2024 12:08:30 02/08/2024 11:38:27 Pain co-occurrent and due to varicose veins of left leg [id number] I83.812 [id number] Anna Baxter MD C[address]ra [place] [address] [place] [address] 02/07/2024 12:08:31 02/09/2024 04:14:38 Pain co-occurrent and due to varicose veins of bilateral legs [id number] I83.813 FINDINGS: Spectral doppler analysis shows abnormal reflux (>500msec) in multiple {{right le ft* bilate ral}} TESSV and bilateral tributary veins. The {{right le ft bilater al*}} {{great saphenous vein* smal l saphenous vein anter ior saphenous vein poste rior accessory saphenous vein great saphenous and small saphenous veins grea t saphenous and anterior saphenous veins grea t saphenous and posterior accessory saphenous veins grea t saphenous, small saphenous and anterior saphenous veins grea t saphenous, small saphenous and posterior accessory saphenous veins thig h extension of the small saphenous vein incom petent telephone recorder vein}} and right ASV {{is are*} } {{absent c losed*}} consistent with previous treatment. Right deep venous insufficie ncy is {{absent* present in the common femoral vein prese nt in the femoral vein prese nt in the popliteal vein prese nt in the femoral and popliteal veins pres ent in the common femoral and femoral veins pres ent in the common femoral and popliteal veins pres ent in the common femoral, femoral and popliteal veins}}. Left deep venous insufficie ncy is {{absent* present in the common femoral vein prese nt in the femoral vein prese nt in the popliteal vein prese nt in the femoral and popliteal veins pres ent in the common femoral and femoral veins pres ent in the common femoral and popliteal veins pres ent in the common femoral, femoral and popliteal veins}}. The deep veins are patent with normal compressib ility and augmentati on. There is adequate venous capacity of the deep system. [id number] MD Ciarra Jaramillo [address] [place] [address] 02/08/2024 12:08:30 02/09/2024 10:52:23 Pain co-occurrent and due to varicose veins of right leg [id number] I83.811 Health Concerns Section Related Observation LastModified by Organization Detai ls LastModified Time None Recorded Concern Status LastModified by Organization Details LastModified Time None Recorded Advance Directives Directive None Recorded Payers Encounter Date Sequence Insurance Name Policy Number Policy Amaya Covered Member ID Amaya Member ID Guarantor Name 01/24/2024 1 [employer] (MEDICARE REPLACEMENT/ ADVANTAGE - PPO) [id number] Isabel M Lali [id number] Isabel M Lali 01/25/2024 1 [employer] (MEDICARE REPLACEMENT/ ADVANTAGE - PPO) [id number] Isabel M Lali [id number] Isabel M Lali 02/07/2024 1 [employer] (MEDICARE REPLACEMENT/ ADVANTAGE - PPO) [id number] Isabel M Lali [id number] Isabel M Lali 02/07/2024 1 [employer] (MEDICARE REPLACEMENT/ ADVANTAGE - PPO) [id number] Isabel M Lali [id number] Isabel M Lali 02/08/2024 1 [employer] (MEDICARE REPLACEMENT/ ADVANTAGE - PPO) [id number] Isabel M Lali [id number] Isabel M Lali Notes Date Note Type Note Provider Name and Address Organization Details Recorded Time 02/07/2024 text/html The patient is a 72 yo female who presents with complaints of bilateral lower extremity varicose veins and increasing symptoms for the past several years. The patient is status post successful endovenous radiofrequency ablation of the {{left right bilater al*}} great saphenous vein and right ASV. The patient continues to have the following symptoms. Symptoms include: pain, cramping, tired legs, heavy legs, fatigue, recurring swelling, spider veins, surface veins. There is no history of DVT, SVT, ulceration, cellulitis or phleborrhagia. Symptom location: Bilateral, ankle/leg/thigh Symptom severity: 8/10; severe Symptoms occur with: prolonged sitting, standing, sleeping, and are worse later in the day. ADLs affected by symptoms:-Sleep: interfere with patient s ability to fall asleep and cause patient to awaken from sleep frequently.-Chores: Avoids chores or needs to take breaks to walk and/or elevate legs.-Leisure activities: Avoids activities or needs to take breaks to walk and/or elevate. Conservative measures implemented without relief of symptoms:-avoidance of prolonged periods of sitting or standing,-regular exercise including moderate daily walking,-leg elevation,-weight control Cyanoacrylate Adhesive Ablation Screening:Patient admits history of:-3 or more allergies-EczemaPati ent denies history of:-Autoimmune conditions-Reaction to household or medical adhesives-Reaction to nail salon treatment-Reaction to bandage adhesives Anna Baxter MD [address], [place], [address], [place] - [facility] 02/07/2024 14:58:41 OBGyn Episode No OBEpisode recorded.
--- OUTSIDE RECORDS SUMMARY | 2024-05-07 22:21 | XMS_ITS | Clinical Summary ---
Author Organization [facility] Address [address] [address] Care Team Providers Care Ethnic Studies Professor Name Role Phone Lynsey Smith MD Primary Care Provider [phone] Source Comments You are receiving this document as you are listed as the primary care provider,follow-up provider, or the patient has been referred to you for consultation.This is in compliance with the Medicare and[facility] Hospital[facility] EHR Incentive Program,which states Providers who transition their patient to another setting of careor provider of care or refers their patient to another provider of care shouldprovide summary care record for each transition of care or referral. [facility] Allergies Active Allergy Reactions Criticality Noted Date Comments Clarithromycin Unknown 11/02/2016 Venlafaxine Rash 12/30/2016 Nitrofurantoin Unknown 11/02/2016 Sulfamethoxazole-Trimethoprim Unknown 2016 Medications Medication Sig Dispensed Refills Start Date End Date Status aspirin 81 MG chewable tablet Take 81 mg by mouth daily. Active ibuprofen (MOTRIN) 400 MG tablet Take 400 mg by mouth every 6 hours as needed for Pain. Active multivitamin (THERAGRAN) tablet Take 1 Tab by mouth daily. Active calcium carbonate-vitamin D (OS-SANDY 500 WITH D) 500-200 MG-UNIT per tablet Take 1 Tab by mouth daily. Active HYDROmorphone (DILAUDID) 2 MG tablet Take 1-2 Tabs by mouth every 3 hours as needed for Pain (Take 1 tab for pain 4-6. Take 2 tabs for pain 7-10.). 50 Tab 11/05/2016 Active Additional Information Patient not taking.Reported on 01/25/2017 acetaminophen (TYLENOL) 325 MG tablet Take 2 Tabs by mouth every 6 hours as needed. 100 Tab 11 11/06/2016 Active polyethylene glycol (MIRALAX) packetIndications:C onstipation Take 1 Packet by mouth two times a day. Indications: Constipation 14 Each 11/06/2016 Active Additional Information Patient not taking.Reported on 01/25/2017 sennosides-docusate sodium (SENNA-S,SENNA PLUS) 8.6-50 MG per tabletIndications:C onstipation Take 2 Tabs by mouth two times daily as needed for Constipation. Indications: Constipation 30 Tab 11/06/2016 Active Additional Information Patient not taking.Reported on 01/25/2017 folic acid 1 MG tablet Take 1 mg by mouth daily. Active Biotin 1 MG CAPS Active Active Problems Problem Noted Date Diagnosed Date Closed displaced pilon fracture of left tibia Social History Tobacco Use Types Packs/Day Years Used Date Smoking Tobacco: Never Smokeless Tobacco: Never Alcohol Use Standard Drinks/Week Comments Yes 1 (1 standard drink = 0.6 oz pur e alcohol) once every other month Sex and Gender Information Value Date Recorded Sex Assigned at Not on file Gender Identity Not on file Sexual Orientation Not on file Last Filed Vital Signs Vital Sign Reading Time Taken Comments Blood Pressure 141/62 11/06/2016 6:35 AM CDT Pulse 105 11/06/2016 6:35 AM CDT Temperature 37.3 C (99.1 F) 11/06/2016 6:35 AM CDT Respiratory Rate 16 11/06/2016 6:35 AM CDT Oxygen Saturation 98% 11/06/2016 6:35 AM CDT Inhaled Oxygen Concentration - - Weight 63.5 kg (140 lb) 01/25/2017 2:03 PM CDT Height 167.6 cm (5' 6) 01/25/2017 2:03 PM CDT Body Mass Index 22.6 01/25/2017 2:03 PM CDT Plan of Treatment Health Maintenance Due Date Last Done Comments Colon Cancer Screening Plan Due 1950 Hep C Screening (Preventive Services) 1950 Medicare Annual Wellness Visit 1950 Mammogram 1950 Cholesterol 1994 Zoster/Shingles (2 of 3) 05/06/2011 03/11/2011 Dexa 2014 DTaP/Tdap/Td (2 - Tdap) 03/11/2021 03/11/2011, 12/08 COVID-19 Vaccine (3 - season) 2023 07/14/2020, 06/16/2020 Influenza (#1) 2023 02/10/2020, 11/0 09/2019, 01/16/2019, Additional history exists RSV (1 - 1-dose 75+ series) 2024 Pneumococcal 65+ Yrs Completed 09/12/2016, 11/08/19 15 HepA Aged Out No longer eligi ble based on patient's age to complete this topic HepB Aged Out No longer eligi ble based on patient's age to complete this topic Hib Aged Out No longer eligi ble based on patient's age to complete this topic IPV (Polio) Aged Out No longer eligi ble based on patient's age to complete this topic MCV4 Aged Out No longer eligi ble based on patient's age to complete this topic Medical Devices Implanted Type Area Game Technician Device Identifier Shelf Expiration Date Model / Serial / Lot Raman Gil 5.0x250 Ctrl-Thrd - [id number] Implanted:Qty : 1 on 11/02/[address] [facility] DEVICE Left: ANKLE [employer] Synthes - Trauma [id number] / / Scr Schakasi Sfdr 5.0x150 - [id number] Implanted:Qty : 2 on 11/02/[address] [facility] DEVICE Left: ANKLE J 294.784 / / Scr Isaac Sftp Ss 3.5x32 F-Thrd - [id number] Implanted:Qty : 1 on 11/04/2016 by Sabrina Lemons MD at [facility] DEVICE Left: ANKLE J 204.832 / / Scr Isaac Sftp Ss 3.5x34 F-Thrd - [id number] Implanted:Qty : 1 on 11/04/2016 by Sabrina Lemons MD at [facility] DEVICE Left: ANKLE J 204.834 / / Scr Lk 2.7x12 - [id number] Implanted:Qty : 1 on 11/04/2016 by Sabrina Lemons MD at [facility] DEVICE Left: ANKLE [employer] [id number] / / Scr Lk 2.7x14 - [id number] Implanted:Qty : 1 on 11/04/2016 by Sabrina Lemons MD at [facility] DEVICE Left: ANKLE [employer] [id number] / / Scr Lk 2.7x18 - [id number] Implanted:Qty : 3 on 11/04/2016 by Sabrina Lemons MD at [facility] DEVICE Left: ANKLE [employer] [id number] / / Scr Cesia Sftp 3.5x14 2.7hd - [id number] Implanted:Qty : 2 on 11/04/2016 by Sabrina Lemons MD at [facility] DEVICE Left: ANKLE [employer] [id number] / / Scr Cesia Sftp 3.5x16 2.7hd - [id number] Implanted:Qty : 1 on 11/04/2016 by Sabrina Lemons MD at [facility] DEVICE Left: ANKLE [employer] [id number] / / Plt Fib Dist Lk Rt 132mm 8h - [id number] Implanted:Qty : 1 on 11/04/2016 by Sabrina Lemons MD at [facility] DEVICE Left: ANKLE [employer] [id number] / / Plt Va-Lcp 2.7/3.5 6h Lt - [id number] Implanted:Qty : 1 on 11/04/2016 by Sabrina Lemons MD at [facility] DEVICE Left: ANKLE DePuy Synthes - Trauma 02.118.205 / / Scr Lk Sftp Va Ss T8 2.7x34 - [id number] Implanted:Qty : 1 on 11/04/2016 by Sabrina Lemons MD at [facility] DEVICE Left: ANKLE J 02.211.034 / / Scr Isaac Sftp T8 2.7x38 - [id number] Implanted:Qty : 2 on 11/04/2016 by Sabrina Lemons MD at [facility] DEVICE Left: ANKLE J[employer] DePuy Synthes - Trauma 202.898 / / Scr Isaac Sftp T8 2.7x40 - [id number] Implanted:Qty : 1 on 11/04/2016 by Sabrina Lemons MD at [facility] DEVICE Left: ANKLE J 202.900 / / Scr Isaac Sftp T8 2.7x42 - [id number] Implanted:Qty : 1 on 11/04/2016 by Sabrina Lemons MD at [facility] DEVICE Left: ANKLE [employer] De[employer] Synthes - Trauma 202.962 / / Scr Isaac Sftp Ss 3.5x28 F-Thrd - [id number] Implanted:Qty : 1 on 11/04/2016 by Sabrina Lemons MD at [facility] DEVICE Left: ANKLE J 204.828 / / Scr Isaac Sftp Ss 3.5x30 F-Thrd - [id number] Implanted:Qty : 1 on 11/04/2016 by Sabrina Lemons MD at [facility] DEVICE Left: ANKLE J 204.830 / / Advance Directives * Full Code (Latest Code Status on File) Date Activated Date Inactivated Comments 11/03/2016 1:47 AM 11/06/2016 2:48 PM * Full Code Date Activated Date Inactivated Comments 11/02/2016 8:28 PM 11/03/2016 1:47 AM Care Teams Ethnic Studies Professor Relationship Specialty Start Date End Date Lynsey Smith MD [address] [place] [address] PCP - General Family Practice 11/02/16
--- OUTSIDE RECORDS SUMMARY | 2024-05-07 22:21 | XMS_ITS | Encounter Summary ---
Author Organization [facility] Address [address], [place] [address] Care Team Providers Care Floor Sander Name Role Phone Lynsey Smith MD Primary Care Provider [phone] Encounter Details Date Type Department Care Team (Late st Contact Info) Description 11/03/2016 Consent for Procedure/Treatme nt [facility] INFORMED CONSENT RECORD Social History Tobacco Use Types Packs/Day Years Used Date Smoking Tobacco: Never Alcohol Use Standard Drinks/Week Comments [...] on filedocumented in this encounter Care Teams Floor Sander Relationship Specialty Start Date End Date Lynsey Smith MD [address] [place] [address] PCP - General Family Practice 11/02/16 documented as of this encounter
[2024-05-07 22:26] VITALS: BP 147/83; PULSE 89; RESP 18; TEMP 36.7; O2SAT 99; BMI 21.8
--- NOTE | 2024-05-07 22:47 | ED.GENADULT ---
HPI - General Adult General Date Seen: 05/07/24 Chief complaint: Unspecified Complaint, Adult Stated complaint: Dark Green Stool, on antibiotic for cat bite Time Seen by Provider: 05/07/24 22:30 History of Present Illness HPI narrative: Patient is a 73-year-old woman who was seen here a little over week ago with cat bite and started on Augmentin. She says since starting the Augmentin she has been having 3 or 4 stools a day which is unusual for her. She is not having diarrhea just more frequent stooling. Today she says she had 3 bowel movements and when she looked at them she fell over a little darker and there was green in them. She called the nurse line and was advised to come in. She notes she has been under significant stress because of a relationship that she thinks is ending, she says she really has not been eating very much because she just isn't hungry. As a result she thinks she is feeling a little weaker than usual. She has not had lightheadedness or fainting. She has not noted any bloody stools, no black tarry stools Related Data Home Medications ?Medication ?Instructions ?Recorded ?Confirmed metformin 500 mg tablet 500 mg PO BID 05/07/24 05/07/24 rosuvastatin 10 mg tablet 10 mg PO HS 05/07/24 05/07/24 spironolactone 50 mg tablet 100 mg PO DAILY 05/07/24 05/07/24 Allergies Allergy/AdvReac Type Severity Reaction Status Date / Time nitrofurantoin (From Allergy Severe Anaphylaxis Verified 05/07/24 22:29 Macrobid) clarithromycin (From Biaxin) AdvReac Severe Anaphylaxis Verified 05/07/24 22:29 sulfamethoxazole (From AdvReac Severe Anaphylaxis Verified 05/07/24 22:29 Bactrim) trimethoprim (From Bactrim) AdvReac Severe Anaphylaxis Verified 05/07/24 22:29 venlafaxine (From Effexor) AdvReac Severe Agitated Verified 05/07/24 22:29 PFSH PFSH Social History Smoking Status: Never smoker Second hand tobacco smoke exposure: No How often do you have a drink containing alcohol: never AUDIT-C Alcohol total score: 0 Non-prescribed substance use: denies use Exam Narrative: Exam Narrative: Vital signs reviewed In general, alert, well-appearing elderly woman. Abdomen: Soft nontender nondistended. Skin: Warm dry well perfused. Const: Vital Signs, click to edit/add: Vital Signs - 24 hr 05/07/24 22:26 05/07/24 22:58 Temperature 98.0 F 98.0 F Pulse Rate [Right Pulse Oximeter] 89 81 Respiratory Rate 18 18 Blood Pressure [Le ft Upper Arm] 147/83 H 135/70 Pulse Oximetry 99 99 Oxygen Delivery Me thod Room Air Room Air Course Course ED Course: Offered rectal exam, she declines at this time. She wonders if she should continue the Augmentin, she has been on it for 8 days and it sounds like it is causing some side effects for her so I suggested that she just discontinue it. Her cat bite has completely healed. She does not describe symptoms suggestive of C diff or GI bleed. I think it is reasonable to have her stop the antibiotic and then if she feels things are not getting back to normal to see her primary doctor. She is very comfortable with this. I did review reasons to return such as profuse diarrhea, significant abdominal pain, black tarry stools or bloody stools, fevers or other worsening. Vital Signs Vital signs: Initial Vital Signs Temperature 98.0 F 05/07/24 22:26 Temperature Source Temporal Artery Scan 05/07/24 22:26 Pulse Rate 89 05/07/24 22:26 Respiratory Rate 18 05/07/24 22:26 Blood Pressure 147/83 H 05/07/24 22:26 Blood Pressure Mean 104 05/07/24 22:26 Blood Pressure Position Sitting 05/07/24 22:26 Pulse Oximetry 99 05/07/24 22:26 Oxygen Delivery Method Room Air 05/07/24 22:26 Vital Signs Temperature 98.0 F 05/07/24 22:26 Pulse Rate 89 05/07/24 22:26 Respiratory Rate 18 05/07/24 22:26 Blood Pressure 147/83 H 05/07/24 22:26 Pulse Oximetry 99 05/07/24 22:26 Oxygen Delivery Method Room Air 05/07/24 22:26 Temperature 98.0 F 05/07/24 22:58 Pulse Rate 81 05/07/24 22:58 Respiratory Rate 18 05/07/24 22:58 Blood Pressure 135/70 05/07/24 22:58 Pulse Oximetry 99 05/07/24 22:58 Oxygen Delivery Method Room Air 05/07/24 22:58 Discharge Plan Discharge Clinical Impression: Change in stool Patient Disposition: Home, Self-Care Condition: Stable Additional Instructions: It is okay to discontinue the Augmentin at this time. If you do not feel that stools return to normal over the next week, follow-up with your primary doctor. If at any time you do develop black tarry stools, significant abdominal pain, significant diarrhea, fevers or other worsening, return to the ER for re-evaluation. Prescriptions: No Action spironolactone 50 mg tablet 100 mg PO DAILY rosuvastatin 10 mg tablet 10 mg PO HS metformin 500 mg tablet 500 mg PO BID Follow Up/Referrals: Carol Otero DO [Primary Care Provider] - Stand Alone Forms: [facility] Info Instructions
--- OUTSIDE RECORDS SUMMARY | 2024-05-07 22:56 | XMS_ITS | Clinical Summary ---
Author Organization [facility] Address [place], [place] [address] Care Team Providers Care Multimedia Engineer Name Role Phone Carol Otero DO Primary Care Provider Allergies Active Allergy Reactions Criticality Noted Date Comments Sulfamethoxazole-Trimethoprim Rash 2006 Clarithromycin Rash 03/20/2007 Venlafaxine Analogues Rash 03/10/2017 Nitrofurantoin Medications MULTIVITAMIN TABIndications: Internal hemorrhoids without mention of complication,Sp ecial screening for malignant neoplasms, colon,Family history of colonic polyps take 1 tablet by oral route once daily with food 0 03/20/20 07 Active calcium-vits M8-H-N5-mineral s 166.75 mg- 166.75 unit cap Take [...] the ACP class on November. Anna Downing KENO ATTENDANT Advance Care Planning Educator Greater trochanteric bursitis [...] Department Care Team Description 05/07/2024 Nurse Triage [facility] [address] [place] [address] Carol Otero, DO Diarrhea 05/01/2024 10:00 AM LANG INTERPRETER Office Visit [facility] [address] [place] [address] Laurie Pike, DO ER Follow up (Cat bite on right wrist, getting better, on antibiotics) 05/01/2024 Nurse Triage [facility] [address] [place] [address] Carol Otero, DO Medication Problem 05/01/2024 Travel 04/30/2024 Nurse Triage [facility] [address] [place] [address] Carol Otero, Bite 04/30/2024 Refill [facility] [address] [place] [address] Carol Otero DO Refill Request (Rosuvastatin) 04/29/2024 Orders Only [facility] Scanner 1 scan: (1-Ord) [place], WRIST RT 2VW, 04/29/2024 04/29/2024 Nurse Triage [facility] [address] [place] [address] Carol Otero, DO Cat Bite 03/06/2024 10:30 AM LANG INTERPRETER Office Visit [facility] [address] [place] [address] Maria Alejandra Katz MD Consult (Hemorrhoids referred by Dr. Duran) 03/06/2024 Travel 02/15/2024 Telephone [facility] [address] [place] [address] Bernabe Duran MD Blood In Stool 02/15/2024 [...] on file Legal Sex Female 6:13 AM LANG INTERPRETER Gender Identity Not on file Sexual Orientation Not on file Occupation Industry Job Start Date Job End Date works at [employer] Not on file Not on file N ot on file Obstetrics History Para Term AB IAB SAB Ectopic Multiple Livin g Live Births 3 3 3 Date Outcome GA Total Labor Labor/2nd/3rd Weight Sex Type Anes PTL [place] A1 A5 Name Clin Term Term Term Last Filed Vital Signs Vital Sign Reading Time Taken Comments Blood Pressure 124/77 05/01/2024 10:09 AM LANG INTERPRETER Pulse 76 05/01/2024 10:09 AM LANG INTERPRETER Temperature 36.7 C (98.1 F) 12/11/2023 2:10 PM CDT Respiratory Rate 14 08/25/2022 9:57 AM CDT Oxygen Saturation 99% 03/06/2024 10:38 AM LANG INTERPRETER Inhaled Oxygen Concentration - - Weight 63.5 kg (140 lb) 03/06/2024 10:38 AM LANG INTERPRETER with shoes Height 168 cm (5' 6.14) 05/24/2023 2:31 PM LANG INTERPRETER Body Mass Index 22.5 05/24/2023 2:31 PM LANG INTERPRETER Plan of Treatment Upcoming Encounters Date Type Department Care Team (Late st Contact Info) Description 05/27/2024 11:05 AM LANG INTERPRETER Office Visit [facility] [address] [place] [address] Carol Otero DO [address] [place] [address] Health Maintenance Due Date Last Done Comments [...] Diagnosis Comments SCAN-RADIOLOGY REPORT 04/29/2024 12:00 AM LANG INTERPRETER LIPID PANEL W REFLEX MEASURED LDL Routine 05/24/2023 2:19 PM LANG INTERPRETER Mixed hyperlipidemia XR MAMMO KAYLYN BILAT SCREEN Routine 05/22/2023 2:09 PM LANG INTERPRETER Visit for screening mammogram COLONOSCOPY 08/25/2022 8:30 AM CDT XR DXA BONE DENSITY 2 SITES AXIAL Routine 03/10/2021 1:26 PM LANG INTERPRETER Osteopenia of multiple sites ANTI HCV Routine 09/19/2016 9:00 AM CDT Encounter for hepatitis C screening test for low risk patient from Last 3 Months or Most Recently Relevant to Health Maintenance Results * SCAN-RADIOLOGY REPORT (04/29/2024 12:00 AM LANG INTERPRETER) Anatomical Region Laterality Modality Other us Scanner OTHER Final Result * (ABNORMAL) LIPID PANEL W REFLEX MEASURED LDL (05/24/2023 2:19 PM LANG INTERPRETER) CHOLESTEROL,TOTAL 193 100 - 199 mg/dL 05/24/2023 9:36 PM LANG INTERPRETER [facility] Comment: Cholesterol, Total Reference Ranges Desirable <200 mg/dL Borderline 200-239 mg/dL High >=240 mg/dL TRIGLYCERIDES 246(H) <150 mg/dL 05/24/2023 9:36 PM LANG INTERPRETER [facility] HDL CHOLESTEROL 55 >40 mg/dL 9:36 PM LANG INTERPRETER [facility] NON-HDL CHOLESTEROL 138 <145 mg/dl 05/24/2023 9:36 PM LANG INTERPRETER [facility] CHOL/HDL RATIO 3.51 <4.50 05/24/2023 9:36 PM LANG INTERPRETER [facility] LDL CHOLESTEROL 89 <=130 mg/dL 05/24/2023 9:36 PM LANG INTERPRETER [facility] VLDL CHOLESTEROL 49(H) <=30 mg/dL 05/24/2023 9:36 PM LANG INTERPRETER [facility] PROVIDER ORDERED STATUS RANDOM 05/24/2023 9:36 PM LANG INTERPRETER [facility] Blood BLOOD SPECIMEN / Unknown Venipuncture / Unknown 05/24/2023 2:19 PM LANG INTERPRETER 05/24/2023 2:22 PM LANG INTERPRETER us Carol Otero DO CHEMISTRY Final Resul t [facility] [address] [place] [address], [place] * XR MAMMO KAYLYN BILAT SCREEN (05/22/2023 2:09 PM LANG INTERPRETER) Anatomical Region Laterality Modality BREASTS, Breast Left, Breast Right Bilateral Mammography Impressions 05/24/2023 7:02 AM LANG INTERPRETER There is no radiographic evidence for malignancy. Recommend annual mammograms. MAMMOGRAM ASSESSMENT: ACR 1 Negative PATIENTS: You will also receive a letter with your examination results in an easy to read format. If you have questions about your results, please contact your referring provider. Narrative 05/24/2023 7:02 AM LANG INTERPRETER For Patients: As a result of the Century Cures Act, medical imaging exams and procedure reports are released immediately into your electronic medical record. You may view this report before your referring provider. If you have questions, please contact your health care provider. XR MAMMO KAYLYN BILAT SCREEN [[id number]] CLINICAL HISTORY: This is an asymptomatic 72 [...] adequate candidate for conscious sedation. The PCF-H190L [id number] was passed through the anus and advanced [...] 8:30 AM Procedure Code(s): --- Professional --- 69371, Colonoscopy, flexible; with removalof tumor(s), polyp(s), or other lesion(s) bysnare technique Diagnosis Code(s): --- Professional --- Z86.010, Personal history of colonicpolyps D12.2, Benign neoplasm of ascending colon K64.8, Other hemorrhoids Q43.8, Other specified congenitalmalformations of intestine CPT copyright 2021 [employer]. All rights reserved. The codes documented in this report are preliminary and upon mc kay machine operator reviewmay be revised to meet current compliance requirements. Scope In: 9:11:22 AM Scope Withdrawal Time 0 hours 9 minutes 33 seconds Scope Out: 9:33:41 AM us Bernabe Duran MD PROCEDURE ORD Edited Re sult - Final * (ABNORMAL) XR DXA BONE DENSITY 2 SITES AXIAL (03/10/2021 1:26 PM LANG INTERPRETER) Anatomical Region Laterality Modality Spine, HIPS, HIPL, HIPR Other Impressions 03/16/2021 7:55 AM LANG INTERPRETER Osteopenia. RECOMMENDATIONS: The National Osteoporosis Foundation recommends [...] recommended in 3-5 years. Brandi Mcintyre PA-C [facility] 03/16/2021 Narrative 03/16/2021 7:55 AM LANG INTERPRETER For Patients: Results are automatically released to your [facility] ([employer]) account once available, in compliance with federal regulations. This means that you may see your results before your provider has had a chance to review them. Please allow 2-3 business days for your provider to comment on the results. XR DXA Bone Mineral Density (BMD) EXAM LOCATION: [facility] [address] [facility] [address] PATIENT NAME: Isabel Escalera DATE OF : [...] two scanners are made by the same global regulatory lead. PROCEDURE: Dual-energy x-ray absorptiometry performed with routine [...] ve Non-Reacti ve 09/19/2016 5:55 PM CDT [facility] Blood BLOOD SPECIMEN / Unknown Venipuncture / Unknown 09/19/2016 9:00 AM CDT 09/19/2016 9:00 AM CDT Narrative [facility] - 09/19/2016 5:55 PM CDT Antibodies to HCV not detected; does not exclude the possibility of exposure to HCV. us Lynsey Smith MD SEND OUTS Pavithra l Result [facility] [address] [place] [address], [place] from Last 3 Months or Most Recently Relevant to Health Maintenance Insurance [employer] PB ONLY [employer] PB ONLY Member Subscriber Plan / Payer (Ef fective 2019-Present) Name:Isabel Escalera Relation to Subscriber:Self Name:Isabel Escalera Payer ID:[id number] (NAIC) Type:Not on file Address: [place] [phone] Care Teams Multimedia Engineer Relationship Specialty Start Date End Date Carol Otero [place] [address] PCP - General Family Practice 01/24/17
--- OUTSIDE RECORDS SUMMARY | 2024-05-07 22:56 | XMS_ITS | Encounter Summary ---
Author Organization [facility] Address [address], [place] [address] Care Team Providers Care Heel Curver Name Role Phone Lynsey Smith MD Primary Care Provider [phone] Encounter Details Date Type Department Care Team [...] on filedocumented in this encounter Care Teams Heel Curver Relationship Specialty Start Date End Date Lynsey Smith MD [address] [place] [address] PCP - General Family Practice 11/02/16 documented as of this encounter
--- OUTSIDE RECORDS SUMMARY | 2024-05-07 22:56 | XMS_ITS | Clinical Summary ---
Author Organization Formerly [facility], [facility] Address [address], [place] [address] Care Team Providers Care Reefer Truck Driver Name Role Phone Lynsey Smith MD Primary Care Provider [phone] Source Comments You are receiving this document as you are listed as the primary care provider,follow-up provider, or the patient has been referred to you for consultation.This is in compliance with the Medicare and[facility] EHR Incentive Program,which states Providers who transition their patient to another setting of careor provider of care or refers their patient to another provider of care shouldprovide summary care record for each transition of care or referral. [facility] Allergies Active Allergy Reactions Criticality Noted Date [...] this topic Medical Devices Implanted Type Area Smoke Control Supervisor Device Identifier Shelf Expiration Date Model / Serial / Lot Raman Gil 5.0x250 Ctrl-Thrd - [id number] Implanted:Qty : 1 on 11/02/2016 at [facility] DEVICE Left: ANKLE [employer]ynthe[employer] - Trauma 293.840 / / Scr Schakasi Sfdr 5.0x150 - [id number] Implanted:Qty : 2 on 11/02/2016 at [facility] DEVICE Left: ANKLE J 294.784 / / Scr Isaac Sftp Ss 3.5x32 F-Thrd - [id number] Implanted:Qty : 1 on 11/04/2016 by Sabrina Lemons MD at [facility] DEVICE Left: ANKLE J 204.832 / / Scr Isaac Sftp Ss 3.5x34 F-Thrd - [id number] Implanted:Qty : 1 on 11/04/2016 by Sabrina Lemons MD at [facility] DEVICE Left: ANKLE J 204.834 / / Scr Lk 2.7x12 - [id number] Implanted:Qty : 1 on 11/04/2016 by Sabrina Lemons MD at [facility] DEVICE Left: ANKLE [employer] [id number] / / Scr Lk 2.7x14 - [id number] Implanted:Qty : 1 on 11/04/2016 by Sabrina Lemons MD at [facility] DEVICE Left: ANKLE [employer] [id number] / / Scr Lk 2.7x18 - [id number] Implanted:Qty : 3 on 11/04/2016 by Sabrina Lemons MD at [facility] DEVICE Left: ANKLE [employer] [id number] / / Scr Cesia Sftp 3.5x14 2.7hd - [id number] Implanted:Qty : 2 on 11/04/2016 by Sabrina Lemons MD at [facility] DEVICE Left: ANKLE [employer] [id number] / / Scr Cesia Sftp 3.5x16 2.7hd - [id number] Implanted:Qty : 1 on 11/04/2016 by Sabrina Lemons MD at [facility] DEVICE Left: ANKLE [employer] [id number] / / Plt Fib Dist Lk Rt 132mm 8h - [id number] Implanted:Qty : 1 on 11/04/2016 by Sabrina Lemons MD at [facility] DEVICE Left: ANKLE [employer] [id number] / / Plt Va-Lcp 2.7/3.5 6h Lt - [id number] Implanted:Qty : 1 on 11/04/2016 by Sabrina Lemons MD at [facility] DEVICE Left: ANKLE [employer] - Trauma 02.118.205 / / Scr Lk Sftp Va Ss T8 2.7x34 - [id number] Implanted:Qty : 1 on 11/04/2016 by Sabrina Lemons MD at [facility] DEVICE Left: ANKLE J 02.211.034 / / Scr Isaac Sftp T8 2.7x38 - [id number] Implanted:Qty : 2 on 11/04/2016 by Sabrina Lemons MD at [facility] DEVICE Left: ANKLE [employer] - Trauma 202.898 / / Scr Isaac Sftp T8 2.7x40 - [id number] Implanted:Qty : 1 on 11/04/2016 by Sabrina Lemons MD at [facility] DEVICE Left: ANKLE J 202.900 / / Scr Isaac Sftp T8 2.7x42 - [id number] Implanted:Qty : 1 on 11/04/2016 by Sabrina Lemons MD at [facility] DEVICE Left: ANKLE [employer] - Trauma 202.962 / / Scr Isaac Sftp Ss 3.5x28 F-Thrd - [id number] Implanted:Qty : 1 on 11/04/2016 by Sabrina Lemons MD at [facility] DEVICE Left: ANKLE J 204.828 / / Scr Isaac Sftp Ss 3.5x30 F-Thrd - [id number] Implanted:Qty : 1 on 11/04/2016 by Sabrina Lemons MD at [facility] DEVICE Left: ANKLE J 204.830 / / Advance Directives * Full Code (Latest Code Status on File) Date Activated Date Inactivated Comments 11/03/2016 1:47 AM 11/06/2016 2:48 PM * Full Code Date Activated Date Inactivated Comments 11/02/2016 8:28 PM 11/03/2016 1:47 AM Care Teams Reefer Truck Driver Relationship Specialty Start Date End Date Lynsey Smith MD [address] [place] [address] PCP - General Family Practice 11/02/16
--- OUTSIDE RECORDS SUMMARY | 2024-05-07 22:56 | XMS_ITS | Encounter Summary ---
Author Organization [facility] Address [address], [place] [address] Care Team Providers Care Tooth Clerk Name Role Phone Lynsey Smith MD Primary Care Provider [phone] Encounter Details Date Type Department Care Team [...] on filedocumented in this encounter Care Teams Tooth Clerk Relationship Specialty Start Date End Date Lynsey Smith MD [address] [place] [address] PCP - General Family Practice 11/02/16 documented as of this encounter
[2024-05-07 22:58] VITALS: BP 135/70; PULSE 81; RESP 18; TEMP 36.7; O2SAT 99
== END 2024-05-07 23:01 | disposition home or self-care (01) ==
LOC: ED 22:54
PROVIDERS: Emergency Provider Emergency Medicine; PCP Family Medicine
DX: R19.5 Other fecal abnormalities (principal)
CPT/HCPCS: 99282; 99284

== ENCOUNTER 2025-01-15 14:45 | Outpatient (RCR) | payer MEDICARE, OTHER, SELFPAY | END 2025-03-13 15:58 | disposition home or self-care (01) | PROVIDERS: PCP Family Medicine; Visit Provider Family Medicine | DX: R26.89 Other abnormalities of gait and mobility (principal); Z51.89 Encounter for other specified aftercare | CPT/HCPCS: 97110; 97162 ==